=== PATIENT | male | born 1945 | race Caucasian/White ===

== ENCOUNTER → 2023-12-10 16:17 | Outpatient (REF) | payer MEDICARE, OTHER, SELFPAY | LOC: RAD 16:17 | PROVIDERS: ATTENDING PHYSICIAN Nurse Practitioner Family; FAMILY PHYSICIAN Internal Medicine | DX: M79.642 Pain in left hand (principal); M25.561 Pain in right knee | CPT/HCPCS: 73130; 73564 ==

== ENCOUNTER 2024-02-16 16:27 | Emergency (ER) | payer MEDICARE, OTHER, SELFPAY ==
[2024-02-16 16:33] VITALS: BP 167/107
[2024-02-16 17:03] LABS: % Basophils 1.3 % (0-2); % Eosinophils 2.8 % (0-6); % Immature Granulocytes 0.4 % (0-0.5); % Lymphocytes 27.2 % (20.5-51.1); % Monocytes 11.5 % (1.7-9.3); % Neutrophils 56.8 % (42.2-75.2); Absolute Basophils 0.1 10^3/uL (0-0.2); Absolute Eosinophils 0.1 10^3/uL (0-0.7); Absolute Lymphocytes 1.3 10^3/uL (1.2-3.4); Absolute Monocytes 0.5 10^3/uL (0.1-0.6); Absolute Neutrophils 2.7 10^3/uL (1.4-6.5); Mean Corp Hgb Conc. 35.9 g/dL (33.0-37.0); Mean Corpuscular Hgb 30.5 pg (27.0-31.0); Mean Platelet Volume 10.1 fL (7.4-10.4); Nucleated Red Blood Cells % 0 % (-); Platelet Count 182 10^3/uL (130-400); Red Blood Cell Count 4.59 10^6/uL (4.70-6.10); Red Cell Dist. Width 13.9 % (11.5-14.5); White Blood Cell Count 4.7 10^3/uL (4.8-10.8)
[2024-02-16 17:15] LABS: ALT (SGPT) 23 U/L (0-50); AST (SGOT) 27 U/L (17-59); Albumin 4.2 g/dl (3.5-5.0); Alkaline Phosphatase 96 U/L (38-126); Blood Urea Nitrogen 18 mg/dl (9-20); Calcium 9.2 mg/dl (8.4-10.2); Carbon Dioxide 28 mmol/L (22-30); Chloride 101 mmol/L (98-107); Glucose 128 mg/dl (70-99); Potassium 3.8 mmol/L (3.5-5.1); Sodium 141 mmol/L (135-145); Total Bilirubin 0.6 mg/dl (0.2-1.3); Total Protein 6.6 g/dl (6.3-8.2); eGFR > 60.00
[2024-02-16 17:33] LABS: Troponin I < 0.012 ng/ml
[2024-02-16 18:29] VITALS: BMI 27.0
[2024-02-16 18:30] VITALS: BP 158/109
[2024-02-16 18:31] VITALS: BP 158/109
[2024-02-16 18:32] VITALS: BP 157/98
--- NOTE | 2024-02-16 18:39 | ED.GENMED ---
History of Present Illness
General
Chief Complaint: Head Injury
Source: patient
Exam Limitations: none
Time Seen by Provider: 02/16/24 18:03
History of Present Illness
History of Present Illness:
This is a 78 year old male that comes in with c/o accidental fall. States that he has been up since 3:30am working. States that he was taking a brake and sitting on a stool at his counter drinking coffee. States that he must have fallen asleep and
he fell off the stool. States that he he awoke on his way down to the ground. States that he his his face and a little on his right shoulder. States that he has a slight headache. Denies any fever, chills, chest pain, SOB, abd pain, nausea,
vomiting, diarrhea, dizziness, urinary burning.
Past History
Past History
ED Past Medical History: Hypercholesterolemia; Negative Asthma, HTN or NIDDM
ED Past Surgical History: Orthopedic (Knee surgery)
Social History
Tobacco: Non-smoker
Alcohol: Occasional
Personal:
Living: alone
Employment: Employed
Review of Systems
Review of Systems
All Other Systems: ROS reviewed and negative except as documented in HPI and ROS
Constitutional: Reports no symptoms; Denies fever or chills
EENT: Reports other (Nasal swelling and tenderness)
Respiratory: Reports no symptoms; Denies cough or trouble breathing
Cardiac: Reports no symptoms; Denies chest pain
ABD/GI: Reports no symptoms; Denies abdominal pain, nausea, vomiting or diarrhea
: Reports no symptoms; Denies dysuria, frequency or urgency
Musculoskeletal: Reports joint pain (slight left shoulder discomfort)
Skin: Reports other (facial abrasion)
Neurological: Reports headache; Denies dizzy
Psychiatric: Reports no symptoms
Phy Exam
General Physical Exam
General Presentation: no apparent distress
General age: appears stated age
General Skin: warm and dry
General Habitus: elderly
General Mental: alert
General Hydration: appears well hydrated
ENT Exam
ENT Exam: TM's normal, pharynx normal, neck supple and other (Nasal tenderness with palpation over the bridge and swelling of the nose. )
Eye Exam
Eye Exam: EOMI
Cardiovascular Exam
Cardiovascular Exam: regular rate/rhythm, no edema, no murmur and normal peripheral pulses
Pulmonary Exam
Pulmonary Exam: lungs clear, no respiratory distress, no rales, chest non tender, no crackles, no rhonchi, no wheezing and no cough
Gastrointestinal Exam
Gastrointestinal Exam: normal bowel sounds, non tender, soft, no organomegaly, no pulsatile mass and non distended
Musculoskeletal Exam
Musculoskeletal Exam: full ROM, no edema and other (Negative for any cervical, shoulder or spinal tenderness, Patient can cross over, abduct, Flex elbows, move wrist and fingers without discomfort. Negative discomfort with flexion of the knee's,
inversion or eversion. )
Skin Exam
Skin Exam: normal color, warm/dry, no petechia and other (abrasion over the forehead and nose)
Psychiatric Exam
Psychiatric Exam: normal mood/affect
Course
Orders/Labs/Results
Orders:
Orders
02/16/24 16:38
Electrocardiogram (*1) Urgent
Reason for Study: Syncope
CT Cervical Spine W/o Iv Contr Urgent
Comment:
Reason For Exam: syncope
CT Facial Bones W/o Iv Contras Urgent
Comment:
Reason For Exam: syncope
CT Head W/o Iv Contrast Urgent
Comment:
Reason For Exam: syncope
CR Shoulder, Trauma - Left Urgent
Reason For Exam: injury
02/16/24 16:39
EKG- Treatment ONCE
02/16/24 16:53
Complete Blood Count/With Diff Urgent
Comprehensive Metabolic Panel Urgent
Troponin I Urgent
Abnormal Lab Results
02/16/24
16:53
WBC 4.7 L 10^3/uL
(4.8-10.8)
RBC 4.59 L 10^6/uL
(4.70-6.10)
Monocytes % 11.5 H %
(1.7-9.3)
Glucose 128 H mg/dl
(70-99)
02/16/24 16:53
02/16/24 16:53
Hyperglycemia, Troponin <0.012
Vital Signs
Initial and Last Documented VS:
Initial Vital Signs
Temp Pulse Resp BP Pulse Ox
98.3 F 83 20 167/107 99
02/16/24 16:33 02/16/24 16:33 02/16/24 16:33 02/16/24 16:33 02/16/24 16:33
Last Documented Vital Signs
Temp Pulse Resp BP Pulse Ox
98.3 F 75 18 166/106 95
02/16/24 16:33 02/16/24 18:31 02/16/24 18:31 02/16/24 20:00 02/16/24 20:00
Procedures
Laceration Closure
Middle Nose:
Status of Wound: clean
Size of Wound in cm: 2
Description of Wound Edges: sharp
Preparation: cleaned with saline
Type of Closure: Dermabond-skin glue
Additional information:
With steri strips
MDM/Problems Addressed
Differential Diagnosis Includes:
Nasal bone fractures,
MDM/Problems Addressed:
This is a 78 year old male that comes in with c/o falling off a bar stool. States that he must have fallen asleep as he is very tired and he awoke when he was falling and hit the floor.
Will check labs. ECG, CT head, cervical spine and facial bones.
Back into see patient. Explained that the CT of his head and cervical spine is negative for any acute process. There is a nasal bone fracture. Patient nose superficial abrasion continues to ooz blood. Area glued and steri strip applied. Patient to
follow up with the ENT specialist. Return with any concerns.
Chronic conditions affecting care:
NA
Acute Exacerbation and/or Progression of Chronic Illness:
NA
*Radiology
Radiology exam reviewed: radiology read reviewed (Shoulder-MIld degenerative changes of the left shoulder without evidence for acute fracture or dislocation. CT head -NO acute intracranial abnormality noted. Slightly comminuted nondisplaced nasal
bone fracture. NO acute fracture or subluxation of the cervical spine. Multilevel degenerative changes) and all reviewed NAD by ED Provider (CT cont- of the cervical spine. ( CT included facial bones and cervical spine)
*Pulse Oximetry
Patient hypoxic: no
*EKG
Interpreted by ED Provider?: Yes
Heart Rate: 79
Rate: normal
Rhythm: sinus
Baker: left axis deviation
Interval: normal interval
QRS Pattern: normal QRS
Ischemia: no ischemia
*Marionette Performer Interpretation
Rate: Marionette Performer- N/A
*Critical Care Note
Total Time (30-74mins, 75-104mins- exclusive of procedures): Not Applicable
ED Attending Note
-
Portions of this chart may have been created with voice recognition software.� Occasional wrong word or��sound alike� substitutions may have occurred due to the inherent limitations of voice recognition software.
Discharge Plan
Departure
Patient Disposition: Home (Routine Discharge)
Date of Disposition: 02/16/24
Time of Disposition: 20:20
Patient with high blood pressure during this ER visit?: Yes
Condition: Good
Covid-19: Not Applicable
Discharge Problem:
Accidental fall from chair, Fracture of nasal bones, Abrasion of face
Instructions: Laceration Repair With Glue (DC), Wound Care (DC), Abrasions ED, Preventing Falls ED, BLOOD PRESSURE
Prescriptions:
No Action
amoxicillin-pot clavulanate 1 TABLET tablet
1 tab PO Q12 Qty: 19 0RF
Referrals:
Sebastien Galvan MD [Active] - Follow up in 2-3 days
Tobias Jimenez DO [Family Provider] - Follow up in 5-7 days
Activity Restrictions/Additional Instructions:
As discussed, your blood work is normal. Your CT of the head and cervical spine are negative for any acute process. You do have degenerative change sin the cervical spine. The CT of the facial bones shows a nasal fracture. Please follow up with the
ENT specialist for further evaluation. Tylenol or Ibuprofen for pain. Please keep your face dry for the next 24 hours. After this you may gently pat the face with warm soapy water but do not scrub as this will remove the steri strips and glue. This
will fall off in about 7 days. IF YOU HAVE ANY OTHER CONCERNS PLEASE RETURN TO THE EMERGENCY ROOM.
Interventions
Interventions:
*Risk Screen - Suicide Last Done: 02/16/24 18:31
*General Assessment Last Done: 02/16/24 16:33
*Neglect/Abuse Screening Last Done: 02/16/24 18:31
*ED COVID-19 Vaccine History Last Done: 02/16/24 18:31
ED- Neurological Assessment Last Done: 02/16/24 18:42
ED-Skin Assessment Last Done: 02/16/24 18:43
Discharge Date and Time
Print Language: IRISH
[2024-02-16 19:20] VITALS: BP 165/105
[2024-02-16 20:00] VITALS: BP 166/106
== END 2024-02-16 20:37 | disposition home or self-care (01) ==
LOC: EMR 16:27
PROVIDERS: Emergency Medicine; EMERGENCY PHYSICIAN Emergency Medicine; FAMILY PHYSICIAN Internal Medicine
DX: S02.2XXA Fracture of nasal bones, initial encounter for closed fracture (principal); S01.21XA Laceration without foreign body of nose, initial encounter; W07.XXXA Fall from chair, initial encounter; E78.00 Pure hypercholesterolemia, unspecified
CPT/HCPCS: 12011; 99284; 70450; 70486; 72125; 73030; 80053; 84484; 85025; 93005

== ENCOUNTER 2024-05-09 14:40 | Emergency (ER) | payer MEDICARE, OTHER, SELFPAY ==
[2024-05-09 15:00] VITALS: BP 170/113
--- NOTE | 2024-05-09 15:16 | ED.GENMED ---
History of Present Illness
General
Chief Complaint: Fall
Source: patient
Exam Limitations: none
Time Seen by Provider: 05/09/24 15:00
Nursing documentation reviewed up to this point in time: agreed with
History of Present Illness
History of Present Illness:
This is a 79-year-old male with a past medical history of hyperlipidemia who presents emergency department today with a posterior headache following a fall. Patient reports that yesterday, he was cleaning snow off of his car when he slipped on ice
and fell straight back, hitting his head on the pavement of the driveway. Patient also notes that he has on and off chronic neck pain but notes of worsening of the neck pain after this accident. Patient is unsure if he lost consciousness or not.
Patient does recall getting upoff of the ground by himself and ambulating without any difficulty. Patient at this time only notes a dull headache and the neck pain but no paresthesias, no dizziness, no numbness, no visual disturbances, no one-sided
weakness. Patient denies any chest pain or shortness of breath, patient denies any abdominal pain, patient does not take a blood thinner. He called his primary care provider this morning who advised him to go to the emergency department for
further workup and imaging
Past History
Past History
ED Past Medical History: Hypercholesterolemia; Negative Asthma, HTN or NIDDM
ED Past Surgical History: Orthopedic (Knee surgery)
Social History
Tobacco: Non-smoker
Alcohol: Occasional
Personal:
Living: alone
Employment: Employed
Review of Systems
Review of Systems
All Other Systems: ROS reviewed and negative except as documented in HPI and ROS
Phy Exam
Physical Exam
Physical Exam:
General: Patient is well appearing and in no acute distress; non-toxic
Skin: Warm and dry, no rashes or lesions
Head: Normocephalic, atraumatic, no palpable hematoma, TMJ joints intact bilaterally. No tenderness palpation of the facial bones
Eyes: Sclera non-icteric. EOMs intact. No entrapment.
Ears: No hemotympanum bilaterally
Cardiac: Regular rate, no tenderness palpation of external chest wall
Pulm: Normal respiratory effort
Abdomen: No abdominal tenderness to palpation
Musculoskeletal: No midline tenderness of the cervical spine noted, paraspinal tenderness noted,
Neuro: CN II-XII intact, no focal neurologic deficits.
Psychiatric: Appropriate mood and affect.
Course
Orders/Labs/Results
Orders:
Orders
05/09/24 14:42
CT Head W/o Iv Contrast Urgent
Comment:
Reason For Exam: fall, head injury
05/09/24 15:[address] Cervical Spine W/o Iv Contr Urgent
Comment:
Reason For Exam: midline neck pain following fall
05/09/24 17:47
Vital Signs- Treatment ONCE
Frequency: Once
Vital Signs
Initial and Last Documented VS:
Initial Vital Signs
Temp Pulse Resp BP Pulse Ox
98.2 F 82 18 170/113 99
05/09/24 15:00 05/09/24 15:00 05/09/24 15:00 05/09/24 15:00 05/09/24 15:00
Last Documented Vital Signs
Temp Pulse Resp BP Pulse Ox
98.2 F 82 17 167/101 99
05/09/24 15:00 05/09/24 17:55 05/09/24 17:55 05/09/24 17:55 05/09/24 17:55
MDM/Problems Addressed
Differential Diagnosis Includes:
Cervical sprain, degenerative disc disease, subdural hematoma, epidural hematoma, tension headache, migraine headache
MDM/Problems Addressed:
79-year-old male with a past medical history of hyperlipidemia presents emergency department today with concerns of posterior headache and neck pain following a fall. This fall occurred yesterday. Other than the neck pain and headache, patient has
no other associate symptoms. On exam, he is well-appearing he is in no acute distress he is neurologically intact and has no obvious signs of trauma. He went for CAT scan of his head and cervical spine which revealed ventricular dilation as well
as arthritic changes of the cervical spine but no traumatic injuries. Patient stable for discharge, discussed findings.
Chronic conditions affecting care:
hyperlipidemia
*Pulse Oximetry
Patient hypoxic: no
*Critical Care Note
Total Time (30-74mins, 75-104mins- exclusive of procedures): Not Applicable
Data Reviewed
Review of Other/Old Records Reveals: Records (Reviewed provider notes, reviewed ER physician documentation from 02/16/2024, patient seen for abrasion of the face, no hospital discharge summaries to review)
Source: patient and records
Prescriptions/Medications Considered But Not Given:
N/A
Further Testing Considered But Not Given:
n/a
Patient Management
Escalation/DeEscalation of care consider admission/obs:
Admit not indicated, patient stable for discharge
case reviewed with my attending
ED Attending Note
-
Portions of this chart may have been created with voice recognition software.� Occasional wrong word or��sound alike� substitutions may have occurred due to the inherent limitations of voice recognition software.
Discharge Plan
Departure
Patient Disposition: Home (Routine Discharge)
Date of Disposition: 05/09/24
Time of Disposition: 17:57
Patient with high blood pressure during this ER visit?: Yes
Condition: Good
Discharge Problem:
Fall from slipping on ice, Headache
Instructions: Preventing falls in adults, BLOOD PRESSURE
Prescriptions:
No Action
amoxicillin-pot clavulanate 1 TABLET tablet
1 tab PO Q12 Qty: 19 0RF
Referrals:
Zeferino Matute DO [Non-Admitting Privileges] - Call in 1-3 days for appt
Rufino Evans MD [Active] - Call in 1-3 days for appt
Tobias Jimenez DO [Family Provider] -
Activity Restrictions/Additional Instructions:
Your blood pressure was high today. This could be related to your pain. I recommended following up with your primary care provider and keeping a log of your blood pressures, and keeping your pain under control.
Your CT scan demonstrated dilation of the ventricular system within the brain, this has been noted on prior imaging. I recommend that when you see your primary care provider and bring up these findings. We recommend evaluation by neurology in the
future.
Your cervical spine CAT scan demonstrated severe arthritic changes which may be causing persistent pain for you. I have attached a referral for orthopedist.
PLEASE RETURN EMERGENCY DEPARTMENT SHOULD YOU DEVELOP CHEST PAIN, SHORTNESS OF BREATH, DIZZINESS, LIGHTHEADEDNESS, VISUAL LOSS OR VISUAL CHANGES, PERSISTENT HEADACHES, SYNCOPAL EPISODES, OR ANY OTHER SIGNS OR SYMPTOMS WORRISOME TO YOU.
Interventions
Interventions:
*Risk Screen - Suicide Last Done: 05/09/24 14:54
*General Assessment Last Done: 05/09/24 14:54
*Neglect/Abuse Screening Last Done: 05/09/24 14:54
ED- Fall Risk Assessment Last Done: 05/09/24 18:20
*ED COVID-19 Vaccine History Last Done: 05/09/24 14:54
*Nursing Disposition Last Done: 05/09/24 18:20
ED-Musculoskeletal Assessment Last Done: 05/09/24 18:23
ED- Neurological Assessment Last Done: 05/09/24 15:30
ED-Skin Assessment Last Done: 05/09/24 18:20
Discharge Date and Time
Discharge Date/Time: 05/09/24 18:23
Print Language: [id number]
[2024-05-09 17:55] VITALS: BP 167/101
== END 2024-05-09 18:23 | disposition home or self-care (01) ==
LOC: EMR 14:40
PROVIDERS: EMERGENCY PHYSICIAN Emergency Medicine; FAMILY PHYSICIAN Internal Medicine
DX: R51.9 Headache, unspecified (principal); M54.2 Cervicalgia; G89.29 Other chronic pain; W00.0XXA Fall on same level due to ice and snow, initial encounter; E78.00 Pure hypercholesterolemia, unspecified
CPT/HCPCS: 99284; 70450; 72125

== ENCOUNTER → 2024-06-30 11:09 | Outpatient (REF) | payer MEDICARE, OTHER, SELFPAY ==
[2024-06-30 12:45] LABS: % Basophils 0.9 % (0-2); % Eosinophils 1.5 % (0-6); % Immature Granulocytes 0.2 % (0-0.5); % Lymphocytes 17.9 % (20.5-51.1); % Monocytes 10.2 % (1.7-9.3); % Neutrophils 69.3 % (42.2-75.2); Absolute Basophils 0.1 10^3/uL (0-0.2); Absolute Eosinophils 0.1 10^3/uL (0-0.7); Absolute Monocytes 0.5 10^3/uL (0.1-0.6); Absolute Neutrophils 3.7 10^3/uL (1.4-6.5); Hematocrit 39.8 % (39.0-52.0); Hemoglobin 13.9 g/dL (13.0-18.0); Mean Corp Hgb Conc. 34.9 g/dL (33.0-37.0); Mean Corpuscular Hgb 30.3 pg (27.0-31.0); Mean Corpuscular Volume 86.9 fL (80.0-94.0); Mean Platelet Volume 10.3 fL (7.4-10.4); Nucleated Red Blood Cells % 0 % (-); Platelet Count 261 10^3/uL (130-400); Red Blood Cell Count 4.58 10^6/uL (4.70-6.10); White Blood Cell Count 5.3 10^3/uL (4.8-10.8)
[2024-06-30 13:36] LABS: ALT (SGPT) 18 U/L (0-50); AST (SGOT) 23 U/L (17-59); Albumin 4.1 g/dl (3.5-5.0); Alkaline Phosphatase 104 U/L (38-126); Blood Urea Nitrogen 23 mg/dl (9-20); Calcium 9.7 mg/dl (8.4-10.2); Carbon Dioxide 29 mmol/L (22-30); Chloride 99 mmol/L (98-107); Glucose 98 mg/dl (70-99); Potassium 3.8 mmol/L (3.5-5.1); Sodium 137 mmol/L (135-145); Total Bilirubin 0.7 mg/dl (0.2-1.3); Total Protein 6.3 g/dl (6.3-8.2); eGFR > 60.00
[2024-06-30 13:39] LABS: NT-proBNP 141 pg/ml
== END ==
LOC: RAD 11:09
PROVIDERS: ATTENDING PHYSICIAN Nurse Practitioner Family; FAMILY PHYSICIAN Internal Medicine
DX: M79.89 Other specified soft tissue disorders (principal); M79.605 Pain in left leg
CPT/HCPCS: 36415; 80053; 83880; 85025; 93971

== ENCOUNTER → 2024-07-27 07:00 | Outpatient (REF) | payer MEDICARE, OTHER, SELFPAY ==
[2024-07-27 10:36] LABS: PSA, Total - Diagnostic 5.92 ng/ml (0.0-4.0)
== END ==
LOC: RAD 07:00
PROVIDERS: ATTENDING PHYSICIAN Nurse Practitioner Family; FAMILY PHYSICIAN Internal Medicine
DX: R22.43 Localized swelling, mass and lump, lower limb, bilateral (principal); R97.20 Elevated prostate specific antigen [PSA]
CPT/HCPCS: 36415; 84153; 93970

== ENCOUNTER → 2024-09-27 06:29 | Outpatient (REF) | payer MEDICARE, OTHER, SELFPAY ==
[2024-09-27 08:50] LABS: ALT (SGPT) 20 U/L (0-50); AST (SGOT) 21 U/L (17-59); Alkaline Phosphatase 86 U/L (38-126); Blood Urea Nitrogen 24 mg/dl (9-20); Calcium 9.3 mg/dl (8.4-10.2); Carbon Dioxide 28 mmol/L (22-30); Chloride 107 mmol/L (98-107); Glucose 89 mg/dl (70-99); HDL Cholesterol 55 mg/dl; LDL Cholesterol, Calculated 108 mg/dl; Potassium 4.2 mmol/L (3.5-5.1); Sodium 141 mmol/L (135-145); Total Bilirubin 0.8 mg/dl (0.2-1.3); Total Cholesterol 181 mg/dl (50-199); Total Protein 6.6 g/dl (6.3-8.2); Triglyceride 90 mg/dl (10-149); Very Low Density Lipoprotein 18 mg/dl (0-30); eGFR > 60.00
== END ==
LOC: REG 06:29
PROVIDERS: ATTENDING PHYSICIAN Internal Medicine Cardiovascular Disease; FAMILY PHYSICIAN Internal Medicine
DX: E78.49 Other hyperlipidemia (principal)
CPT/HCPCS: 36415; 80053; 80061